=== PATIENT | male | born 1945 | race Caucasian/White ===

== ENCOUNTER 2019-11-08 11:21 | Emergency (ER) | payer MEDICARE, BC ==
[2019-11-08] MEDS ORDERED: Sodium Chloride 0.9% 10 ML Syringe FLUSH PRN (11:22)
[2019-11-08] MEDS ORDERED: Sodium Chloride 0.9% 2.5 ML Syringe FLUSH PRN (11:22)
[2019-11-08] MEDS ORDERED: Sodium Chloride 0.9% 10 ML SDV IV PRN (11:22)
[2019-11-08] MEDS ORDERED: EPINEPHrine 1 MG/1 ML Amp IVPUSH ONE ×3 (11:27→11:37)
[2019-11-08] MEDS ORDERED: Sodium Bicarbonate 8.4% 50 MEQ/50 ML Syringe IVPUSH ONE ×2 (11:27→11:28)
[2019-11-08] MEDS ORDERED: EPINEPHrine 1:10,000 1 MG/10 ML Syringe IVPUSH ONE (11:27)
--- NOTE | 2019-11-08 12:03 | EDM.PDOC ---
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 Brought in by ambulance from home. Family members went to check on the patient this morning and noted that he was nonverbal and seemed confused. When paramedics arrived, the patient was aphasic. His eyes were open and he was able to make eye contact with the EMS crew but was not able to follow commands. As EMS was packaging the patient for transport, he became apneic and developed respiratory arrest. Paramedics intubated the patient and then he developed cardiac arrest. He was noted to be in PEA and asystole but was never in VF or VT. Paramedics intubated the patient and placed an IO in the left lower extremity. He received 3 rounds of epinephrine through the IO prior to arrival. The patient arrives intubated with CPR in progress. - Related Data Allergies Allergy/AdvReac Type Severity Reaction Status Date / Time Unable to Assess Allergy Unverified 11/08/19 11:29 Home Meds: Home Meds . [Unable to Verify Home Med List] 11/08/19 [History] Past Medical History Cardiovascular History: Reports: High Cholesterol, Hypertension Respiratory History: Reports: COPD Other Oncologic History: Lung cancer with metastasis to the liver and spine Social & Family History - Family History Family Medical History: Unobtainable - Tobacco Use Second Hand Smoke Education Comment: Unobtainable - Alcohol Use Alcohol Use Comment: Unobtainable - Recreational Drug Use Recreational Drug Use Comment: Unobtainable ED ROS GENERAL - Review of Systems Review Of Systems: Unable To Obtain Reason Not Obtained: Due to cardiac arrest ED EXAM, CPR - Physical Exam Exam: See Below Text/Narrative:: Vital signs reviewed. Nursing notes reviewed. Constitutional: Pulseless, and cardiac arrest Head: Normocephalic, atraumatic. Eyes: Pupils 7 mm bilaterally and nonreactive Ears, Nose, Throat: Endotracheally intubated Cardiovascular: Pulseless Pulmonary: Apneic, with BVM ventilations ongoing Abdomen/GI: Nondistended Musculoskeletal: No deformities. Integumentary: Cool, pale Neurologic: Unresponsive Psychiatric: Unable to assess ED CPR PROCEDURES - Additional/Other Procedure(s) Other (Free Text) Procedure(s): Critical care time is exclusive of billable procedures and the time to perform these procedures. Critical care time was used to prevent vital system organ failure and deterioration. Critical care time includes bedside management and high-complexity decision making requiring my highest level of mental preparedness and attention. This includes reviewing the patient's chart and prior medical records, ordering and reviewing interpreting laboratory studies and imaging results, interpretation of vital signs and EKG, pulse oximetry, and discussion with the admitting team along with EMS and nursing staff. Cardiopulmonary arrest requiring chest compressions, epinephrine, serial ultrasound checks, monitoring of hemodynamic output, complex team coordination including EMS, nursing, respiratory therapy. Discussions with family. ED ULTRASOUND - Cardiac Indication: cardiac arrest Exam type: focused transthoracic Findings: abnormal wall motion Images archived: No Cardiac US Text: Findings: Agonal cardiac activity. Impression: PEA. Course - Vital Signs Text/Narrative:: 73-year-old male presenting in cardiac arrest. Immediately transferred to ED bed and monitoring equipment was attached. Noted to be in an organized rhythm without palpable central pulses (PEA). Chest compressions were continued. The patient was endotracheally intubated by the EMS crew prior to arrival. End-tid al CO2 was attached, noted to have a waveform with a reading of 8 mmHg. Additional epinephrine was administered. Bedside cardiac ultrasound shows agonal activity. [id number] blood glucose is within normal limits. There is no evidence of trauma and no report of any injury. We administered additional epinephrine along with sodium bicarbonate. Serial pulse checks and ultrasound assessments were carried out. At one point, end-tidal CO2 increased to 50 mmHg but the patient remained pulseless. Repeat cardiac ultrasound showed improving cardiac activity but there was still no palpable pulse. Patient was never in VF or VT and thus was not defibrillated. Symmetric chest rise and presence of capnography waveform confirmed ET tube placement. CPR was carried out for approximately 20 minutes in the emergency department in addition to the pre-hospital CPR performed by the plisse machine operator helper crew. The patient failed to achieve return of spontaneous circulation. Time of 11:39 AM. PROCEDURE NOTE: CPR INDICATION: Cardiac Arrest Implied consent due to an emergent / life threatening condition. PROCEDURE SUMMARY: Patient was noted to be pulseless on physical exam. Chest compressions initiated . Standard ACLS procedures were followed as per the flowsheet. CPR was performed by various ED staff, trading off as appropriate to ensure high quality CPR. All compressions were directly supervised by me. Unfortunately, ROSC was not achieved. Last Recorded V/S: Last Vital Signs Temp Pulse 0 L 11/08/19 11:23 Resp 12 11/08/19 11:23 BP Pulse Ox 68 L 11/08/19 11:23 - Orders/Labs/Meds Orders: Active Orders 24 hr Category Date Time Status Insert Banuelos Catheter [Insert Urinary Catheter] [OM.PC] Care 11/08/19 13:00 Ordered Q24H Meds: Medications Discontinued Medications Generic Name Dose Route Start Last Admin Trade Name Freq PRN Reason Stop Dose Admin Epinephrine HCl 1 mg 11/08/19 11:27 11/08/19 12:54 Epinephrine 1:10,000 IVPUSH 11/08/19 11:28 Not Given ONETIME ONE Epinephrine HCl 1 mg 11/08/19 11:31 11/08/19 12:54 Adrenalin IVPUSH 11/08/19 11:32 1 mg ONETIME ONE Administration Epinephrine HCl 1 mg 11/08/19 11:37 11/08/19 12:54 Adrenalin IVPUSH 11/08/19 11:38 1 mg ONETIME ONE Administration Epinephrine HCl 1 mg 11/08/19 11:27 11/08/19 12:55 Adrenalin IVPUSH 11/08/19 11:28 1 mg ONETIME ONE Administration Sodium Bicarbonate 50 meq 11/08/19 11:27 11/08/19 12:54 Sodium Bicarbonate 8.4% IVPUSH 11/08/19 11:28 50 meq ONETIME ONE Administration Sodium Bicarbonate 50 meq 11/08/19 11:28 11/08/19 12:54 Sodium Bicarbonate 8.4% IVPUSH 11/08/19 11:29 50 meq ONETIME ONE Administration Sodium Chloride 10 ml 11/08/19 11:22 Saline Flush FLUSH ASDIRECTED PRN Keep Vein Open Sodium Chloride 2.5 ml 11/08/19 11:22 Saline Flush FLUSH ASDIRECTED PRN Keep Vein Open Sodium Chloride 10 ml 11/08/19 11:22 Normal Saline IV ASDIRECTED PRN IV Use Departure - Departure Time of Disposition: 11:39 Disposition: 20 Preliminary Cause of *Q: Cardiac Arrest Condition: Critical Clinical Impression: Cardiac arrest - Discharge Information Referrals: PCP,None [Primary Care Provider] - Forms: ED Department Discharge Sepsis Event Note (ED) - Focused Exam Vital Signs: Vital Signs Pulse Resp Pulse Ox 11/08/19 11:23 0 L 12 68 L - My Orders Last 24 Hours: My Active Orders 11/08/19 13:00 Insert Banuelos Catheter [Insert Urinary Catheter] [OM.PC] Q24H - Assessment/Plan Last 24 Hours: My Active Orders 11/08/19 13:00 Insert Banuelos Catheter [Insert Urinary Catheter] [OM.PC] Q24H
== END 2019-11-08 14:10 | disposition expired ==
LOC: MW.ED 11:21
DX: I46.9 Cardiac arrest, cause unspecified (principal); I10 Essential (primary) hypertension; J44.9 Chronic obstructive pulmonary disease, unspecified
CPT/HCPCS: 51702; 92950; 96374; 96375; 99285; J0171